=== PATIENT | male | born 1940 | race Caucasian/White ===

== ENCOUNTER → 2023-11-19 11:28 | Outpatient (CLI) | payer MEDICARE, OTHER, SELFPAY ==
--- NOTE | 2023-11-19 | DI.ECHO.S_ITS ---
[facility] : : [address] : : [place] : : [id number] : : Phone: [phone] Echocardiogram Report + + :Name: SARANYA TRUONG Study Date: 11/19/2023 Height: 70 in : :[facility] ReadingLocation: Weight: 185 lb : : Gender: Male BSA: 2.0 m2 : :: 1940 Age: 83 yrs BP: 146/73 mmHg: :Reason For Study: DYPSNEA ON EXERTION : :Ordering Physician: DANIELA REAL Performed By: Mateo Richards : :Referring: DANIELA REAL : + + Interpretation Summary 1. The left ventricular contractility is normal. Estimated ejection fraction greater than 55% with no segmental wall motion abnormalities. No LVH. Normal diastolic function. 2. The right ventricular contractility is normal. 3. Mild biatrial enlargement. Mild right ventricular enlargement. The left ventricular cavity is of normal size. 4. No significant valvular abnormalities noted. 5. No obvious intracardiac shunts. 6. No obvious intracardiac masses or thrombi. 7. No hemodynamically significant pericardial effusion. 8. Low right-sided filling pressures. 9. The aortic root is mildly dilated without obvious dissection. Conclusion: Normal biventricular function with no significant valvular abnormalities. Procedure: A two-dimensional transthoracic echocardiogram with color flow and Doppler was performed. The study quality was technically adequate. There is no prior echocardiogram noted for this patient. The patient was in sinus rhythm with heart rates between 58-65 bpm during the exam. Left Ventricle: The left ventricle is normal in size and wall thickness. The ejection fraction is estimated to be 55-60%. Right Ventricle: The right ventricle is mildly dilated. The right ventricular systolic function is normal. Atria: The left atrium is mildly dilated. The right atrium is mildly dilated. The interatrial septum grossly appears intact with no obvious evidence for an atrial septal defect. Mitral Valve: The mitral valve is normal. There is no mitral valve stenosis. There is trace mitral regurgitation. Aortic Valve: The aortic valve is trileaflet. There is no aortic valve stenosis. No aortic regurgitation is present. Tricuspid Valve: The tricuspid valve is normal. There is no tricuspid stenosis. There is a trace or physiologic amount of tricuspid regurgitation. Pulmonic Valve: The pulmonic valve is not well visualized. There is no pulmonic valvular stenosis. There is no pulmonic valvular regurgitation. Great Vessels: The aortic root is mildly dilated. The dimensions of the ascending aorta are normal. The IVC is of normal diameter and collapses greater than 50% with a sniff. This suggests a low right atrial pressure of 3 mm Hg. Pericardium/ Pleura There is no pericardial effusion. There is no pleural effusion. MMode/2D Measurements & Calculations LVIDd: 4.9 cm LVOT diam: 2.1 cm LVIDs: 3.6 cm Ao root diam: 3.8 cm FS: 26.5 % asc Aorta Diam: 3.5 cm IVSd: 0.89 cm LVPWd: 0.87 cm LV snider. diameter/BSA (cm/m^2): 2.4 LV sys. diameter/BSA (cm/m^2): 1.8 LA A2 area: 24.0 cm2 RA long axis: 5.2 cm LA A4 area: 22.4 cm2 RA area: 16.0 cm2 LA length (vol): 6.1 cm RA vol: 41.9 ml LA vol: 75.1 ml RA : 20.8 ml/m2 LA vol index: 37.2 ml/m2 IVC diam: 1.1 cm RVD1 (basal): 4.1 cm RVD2 (mid): 3.3 cm TAPSE: 2.1 cm Doppler Measurements & Calculations Ao V2 max: 109.7 cm/sec LVOT Max Bobby: 87.3 cm/sec Ao V2 mean: 75.6 cm/sec LV V1 max P.0 mmHg Ao max P.8 mmHg LV V1 VTI: 18.8 cm Ao mean P.6 mmHg KAYCEE(I,D): 3.0 cm2 Ao V2 VTI: 21.6 cm KAYCEE(V,D): 2.7 cm2 sev ratio: 0.87 KAYCEE indexed to BSA (cm^2/m^2): 1.5 MV E max bobby: 73.4 cm/sec PA V2 max: 104.7 cm/sec MV A max bobby: 96.6 cm/sec PA V2 mean: 67.2 cm/sec MV E/A: 0.76 PA mean P.0 mmHg Med Peak E' Bobby: 6.5 cm/sec PA pr(Accel): 48.2 mmHg E/E' med: 11.2 Lat Peak E' Bobby: 10.0 cm/sec E/E' lat: 7.4 E/e' average: 9.3 MV dec time: 0.18 sec SV(LVOT): 63.9 ml Reading Physician:
== END ==
LOC: ECHO 11:29
PROVIDERS: Referring Provider Internal Medicine; Visit Provider Internal Medicine
DX: I77.810 Thoracic aortic ectasia (principal); G45.3 Amaurosis fugax; R29.818 Other symptoms and signs involving the nervous system; R47.01 Aphasia
CPT/HCPCS: 93306